=== PATIENT | female | born 1985 | race Caucasian/White ===

== ENCOUNTER → 2016-07-18 | Outpatient (CLI) | payer BC ==
[~2016-07-18] MED LIST: FERR1TAB23 PO; PRENTAB26 PO; VNTHFA/IN INH
[2016-07-18 16:33] LABS: BASO % 0.2 %; BASO ABS # 0.02 K/uL (0-0.2); COMPLETE YES; EOS % 2.1 %; IG% 0.2 %; LYMPH % 23.8 %; LYMPH ABS # 2.25 K/uL (1.2-3.4); MEAN CELL VOLUME 83.9 fL (80-100); MEAN CORPUSCULAR HEMOGLOBIN 28.8 pg (25-34); MEAN CORPUSCULAR HGB CONC 34.3 g/dl (32-36); MEAN PLATELET VOLUME 10.7 fL (7.4-10.4); MONO % 9.1 %; NEUT % 64.6 %; PLATELET COUNT 195 K/uL (130-400); RED BLOOD COUNT 4.17 M/uL (4.2-5.4); WHITE BLOOD COUNT 9.45 K/uL (4.8-10.8)
== END | disposition home or self-care (01) ==
LOC: C.LAB1850 15:27
PROVIDERS: ATTEND Obstetrics & Gynecology
DX: Z34.81 Encounter for supervision of other normal pregnancy, first trimester (principal)

== ENCOUNTER → 2016-07-18 | Outpatient (CLI) | payer BC | END | disposition home or self-care (01) | LOC: C.PAPS 09:12 | PROVIDERS: ATTEND Obstetrics & Gynecology | DX: Z34.81 Encounter for supervision of other normal pregnancy, first trimester (principal) ==

== ENCOUNTER → 2016-07-18 | Outpatient (CLI) | payer BC ==
[2016-07-18 18:50] LABS: URINE APPEARANCE CLEAR (CLEAR); URINE BILIRUBIN NEG (NEG); URINE COLOR YELLOW; URINE NITRITE NEG (NEG); URINE SPECIFIC GRAVITY 1.008 (1.000-1.030); UROBILINOGEN NEG (NEG)
[2016-07-18 18:58] LABS: MANUAL MICROSCOPIC REQUIRED? NO; REVIEW REQ? NO
[2016-07-21 00:16] LABS: CHLAMYDIA TRACH RNA*** NOT DETECTED (NOT DETECTED); GC (NEIS GONORRHOEAE)RNA** NOT DETECTED (NOT DETECTED)
== END | disposition home or self-care (01) ==
LOC: C.LABSPEC 17:40
PROVIDERS: ATTEND Obstetrics & Gynecology
DX: Z34.81 Encounter for supervision of other normal pregnancy, first trimester (principal)

== ENCOUNTER → 2016-09-13 | Outpatient (CLI) | payer BC ==
[2016-09-13 17:05] LABS: GTGD 50 Grams
== END | disposition home or self-care (01) ==
LOC: C.LAB1850 14:39
PROVIDERS: ATTEND Obstetrics & Gynecology
DX: Z34.82 Encounter for supervision of other normal pregnancy, second trimester (principal)

== ENCOUNTER → 2016-12-06 | Outpatient (CLI) | payer BC ==
[2016-12-06 12:05] LABS: HEMATOCRIT 32.3 % (37-47)
[2016-12-06 12:23] LABS: URINE APPEARANCE CLOUDY (CLEAR); URINE BILIRUBIN NEG (NEG); URINE COLOR DK YELLOW; URINE EPITHELIAL CELL AUTO >30 /lpf (0-5); URINE NITRITE NEG (NEG); URINE PH 8.5 (4.5-7.5); URINE SPECIFIC GRAVITY 1.023 (1.000-1.030); UROBILINOGEN NEG (NEG)
[2016-12-06 12:58] LABS: MANUAL MICROSCOPIC REQUIRED? NO; REVIEW REQ? YES; SULFASALICYLIC ACID NEG (NEG)
[2016-12-06 13:18] LABS: GTGD 50 Grams
== END | disposition home or self-care (01) ==
LOC: C.LAB1850 10:23
PROVIDERS: ATTEND Obstetrics & Gynecology
DX: Z34.82 Encounter for supervision of other normal pregnancy, second trimester (principal)

== ENCOUNTER → 2016-12-13 | Outpatient (CLI) | payer BC | END | disposition home or self-care (01) | LOC: C.LAB1850 07:18 | PROVIDERS: ATTEND Obstetrics & Gynecology | DX: O28.1 Abnormal biochemical finding on antenatal screening of mother (principal); Z3A.00 Weeks of gestation of pregnancy not specified ==

== ENCOUNTER → 2017-01-30 | Outpatient (CLI) | payer BC | END | disposition home or self-care (01) | LOC: C.LABSPEC 18:03 | PROVIDERS: ATTEND Obstetrics & Gynecology | DX: Z34.83 Encounter for supervision of other normal pregnancy, third trimester (principal) ==

== ENCOUNTER 2017-02-11 16:38 | Outpatient (CLI) | payer BC ==
[~2017-02-11 16:38] MED LIST changes: -VNTHFA/IN INH
--- NOTE | 2017-02-16 10:52 | EDITING REQUIRED CODING QUERY ---
DIAGNOSIS NEEDED To promote full compliance with coding requirements relating to patient care, physician participation is requested in all cases of assistant store manager operations uncertainty. Please assist us with the question(s) below: Coding Question: The patient received care in labor and delivery on 02/11/17 as noted within the record. Please document the diagnosis that is being addressed by the medication/treatment. Provider Response: DIAGNOSIS: Contractions, r/o labor, not in labor. Thank you for your assistance, [place] Farmer - Lead Enterprise Architect
== END 2017-02-11 17:35 | disposition home or self-care (01) ==
LOC: C.OPB 16:38 → C.LD 16:38 → C.OPB 17:35
PROVIDERS: ATTEND Obstetrics & Gynecology
DX: O62.9 Abnormality of forces of labor, unspecified (principal); Z3A.00 Weeks of gestation of pregnancy not specified

== ENCOUNTER 2017-02-25 17:06 | Outpatient (CLI) | payer BC ==
[~2017-02-25] VITALS: Ht 160 cm; Wt 64.1 kg
[2017-02-25] MEDS ORDERED: VNTHFA/IN INH (17:33)
[2017-02-25 17:37] VITALS: Ht 160 cm; Wt 64.1 kg
== END 2017-02-25 21:15 | disposition home or self-care (01) ==
LOC: C.LD 17:06 → C.OPB 17:06
PROVIDERS: ATTEND Obstetrics & Gynecology
DX: O62.9 Abnormality of forces of labor, unspecified (principal); Z3A.40 40 weeks gestation of pregnancy

== ENCOUNTER 2017-02-27 04:59 | Outpatient (CLI) | payer BC ==
[~2017-02-27] VITALS: Ht 160 cm; Wt 64.1 kg
[~2017-02-27 04:59] MED LIST changes: +VNTHFA/IN INH
[2017-02-27 05:30] VITALS: Ht 160 cm; Wt 64.1 kg
== END 2017-02-27 08:13 | disposition home or self-care (01) ==
LOC: C.LD 04:59 → C.OPB 04:59
PROVIDERS: ATTEND Obstetrics & Gynecology
DX: O62.9 Abnormality of forces of labor, unspecified (principal); Z3A.00 Weeks of gestation of pregnancy not specified

== ENCOUNTER 2017-02-27 16:10 | Inpatient (IN) | payer BC ==
[~2017-02-27] VITALS: Ht 160 cm; Wt 65.0 kg
[~2017-02-27 16:10] MED LIST changes: -FERR1TAB23 PO
[2017-02-27] MEDS ORDERED: LACTATED RINGER'S 1000ML 1,000 ML IV SCH (16:19)
[2017-02-27] MEDS ORDERED: LACTATED RINGER'S 1000ML 1,000 ML IV PRN (16:19)
[2017-02-27 16:44] LABS: HEMATOCRIT 36.9 % (37-47); MEAN CELL VOLUME 90.9 fL (80-100); MEAN CORPUSCULAR HGB CONC 33.1 g/dl (32-36); MEAN PLATELET VOLUME 11.1 fL (7.4-10.4); PLATELET COUNT 160 K/uL (130-400); RED BLOOD COUNT 4.06 M/uL (4.2-5.4); WHITE BLOOD COUNT 10.66 K/uL (4.8-10.8)
[2017-02-27 16:50] VITALS: Ht 160 cm; Wt 65.0 kg
[2017-02-27] MEDS ORDERED: BUPIVACAINE 0.25% 30 ML VIAL ONE (16:52)
[2017-02-27] MEDS ORDERED: EpHEDrine SULFATE INJ 50 MG/ML AMP ONE (16:52)
[2017-02-27] MEDS ORDERED: FENTANYL 2MCG/ML ROPIV 1.25MG/ML 100ML BAG EPI ONE (16:52)
[2017-02-27] MEDS ORDERED: FENTANYL CITRATE INJ 50 MCG/1 ML 2 ML VIAL ONE (16:53)
[2017-02-27] MEDS ORDERED: OXYTOCIN 30 UNITS/500ML NSS IV ONE (17:55)
[2017-02-27] MEDS ORDERED: SUPERCREAM 0.870 % 15GM JAR EXT PRN (18:15)
[2017-02-27] MEDS ORDERED: OXYCODONE/ACETAMINOPHEN 5-325 TAB PO PRN (18:15)
[2017-02-27] MEDS ORDERED: BENZOCAINE 20% AER SPR 82.5 GM CAN EXT PRN (18:15)
[2017-02-27] MEDS ORDERED: LANOLIN OINT EXT PRN ×2 (18:15)
[2017-02-27] MEDS ORDERED: OXYTOCIN 30 UNITS/500ML NSS IV PRN (18:15)
[2017-02-27] MEDS ORDERED: HYDROCORTISONE ACETATE 25 MG SUPP PR PRN (18:15)
[2017-02-27] MEDS ORDERED: ACETAMINOPHEN 325 MG TAB PO PRN (18:15)
[2017-02-27] MEDS ORDERED: DIPHTHERIA/TETANUS/PERTUSSIS 0.5 ML SYR/VIAL IM. ONE (18:15)
[2017-02-27] MEDS ORDERED: ACETAMINOPHEN/CODEINE 300/30MG TAB PO PRN (18:15)
--- NOTE | 2017-02-27 19:34 | Anesthesia Procedure Note ---
Anesthesia Epidural Removal Nt Date & Time Feb 27, 2017 at 19:34 Notes Mental Status: alert / awake / arousable, participated in evaluation Nausea / Vomiting: adequately controlled Pain: adequately controlled Airway Patency, RR, SpO2: stable & adequate BP & HR: stable & adequate Hydration State: stable & adequate Neuraxial Anesthesia: was administered Anesthetic Complications: no major complications apparent, pt satisfied with anesthetic care Epidural: removed without complications, with tip intact
--- NOTE | 2017-02-27 19:55 | DELIVERY SUMMARY ---
DATE OF OPERATION: 02/27/2017 Lynne presented in active labor with rupture of membranes, group B strep negative at term. This was her second baby, prior vaginal delivery, uncomplicated . The patient progressed to 4 cm, requested an epidural. Soon afterwards was fully dilated and pushed. Baby was delivered in right occiput anterior position. There was a nuchal cord x3. This had to be clamped and cut after delivery of the head. The mouth and the nares were suctioned with bulb. Baby was delivered by gentle traction. No excessive force. Live male . Cord gas was obtained. Cord blood obtained. Placenta removed with manual traction. Uterus improved in tone. There was no tearing. Initially there was a relaxation in uterine tone. We increased the Pitocin and this improved. Estimated blood loss 200 mL. Sponge and instrument count correct. I attest to the content of the Intraoperative Record and any orders documented therein. Any exception s are noted below.
[2017-02-27] MEDS: IBUPROFEN 600 MG TAB PO PRN (20:03)
[2017-02-27] MEDS: DOCUSATE SODIUM 100 MG CAP PO SCH (20:03)
[2017-02-27 21:20] VITALS: BP 109/72; PULSE 84; TEMP 36.7; O2SAT 97
[2017-02-27 23:15] VITALS: BP 113/70; PULSE 72; TEMP 37.4; O2SAT 96
[2017-02-28] MEDS: IBUPROFEN 600 MG TAB PO PRN ×6 (00:40→22:46)
[2017-02-28 04:30] VITALS: BP 104/67; PULSE 75; TEMP 36.4; O2SAT 96
[2017-02-28] MEDS: ACETAMINOPHEN/CODEINE 300/30MG TAB PO PRN ×3 (04:37→12:21)
[2017-02-28 07:35] VITALS: BP 110/77; PULSE 72; TEMP 36.6; O2SAT 96
[2017-02-28] MEDS ORDERED: IBUPROFEN 600 MG TAB PO PRN (07:45)
--- NOTE | 2017-02-28 07:45 | Progress Note ---
Subjective Feb 28, 2017. Subjective conversation w/ patient, physical exam, chart review, lab review Ambulation: ambulating normally Voiding: no voiding problems Lochia: Moderate Feeding Type: Breast Feeding Objective Vital Signs Date Time Temp Pulse Resp B/P (MAP) Pulse Ox O2 Delivery O2 Flow Rate FiO2 02/28/17 04:30 36.4 75 16 104/67 (79) 96 Room Air 02/27/17 23:15 Room Air 02/27/17 23:15 37.4 72 16 113/70 (84) 96 Room Air 02/27/17 21:20 36.7 84 16 109/72 (84) 97 Room Air 02/27/17 21:20 Room Air Physical Exam General Appearance: WELL-APPEARING Abdomen: non tender Fundus: Firm Extremities: no calf tenderness Laboratory Results Last 24 Hours Test 02/27/17 16:32 02/28/17 07:12 White Blood Count 10.66 K/uL Red Blood Count 4.06 M/uL Hemoglobin 12.2 g/dL Hematocrit 36.9 % Mean Corpuscular Volume 90.9 fL Mean Corpuscular Hemoglobin 30.0 pg Mean Corpuscular Hemoglobin Concent 33.1 g/dl RDW Standard Deviation 46.9 fL RDW Coefficient of Variation 14.1 % Platelet Count 160 K/uL Mean Platelet Volume 11.1 fL Assessment and Plan Post- Day#: 1 Continue Routine Care: christiano
[2017-02-28 07:58] LABS: HEMATOCRIT 37.8 % (37-47)
[2017-02-28] MEDS: PRENATAL VITAMIN TAB PO SCH (08:02)
[2017-02-28] MEDS: DOCUSATE SODIUM 100 MG CAP PO SCH ×2 (08:02→20:01)
[2017-02-28 12:15] VITALS: BP 102/72; PULSE 89; TEMP 37.1
[2017-02-28 15:40] VITALS: BP 108/73; PULSE 73; TEMP 37
[2017-02-28 16:00] VITALS: BP 111/74; PULSE 79; TEMP 36.9
[2017-02-28] MEDS ORDERED: BISACODYL 5 MG TABEC PO SCH (20:00)
--- NOTE | 2017-02-28 20:13 | Discharge Instructions ---
Discharge Instructions Date of Service Feb 28, 2017. Admission Reason for Admission: Check Labor Discharge Discharge Diagnosis / Problem: recovery from normal delivery Discharge Goals Goal(s): Routine recovery after delivery Medications Continue Dispensed Medications: supercream, dermaplast, lansinoh Activity Recommendations Activity Limitations: per Instructions/Follow-up section . Instructions / Follow-Up Instructions / Follow-Up ACTIVITY RECOMMENDATIONS: * Gradual return to full activity over the next 2-3 weeks. * No lifting - nothing heavier than baby over the next 2-3 weeks. * Do not engage in vigorous exercise, sexual activity or sports until cleared by your physician. * Do not drive or operate any motorized equipment until cleared by your physician. * You may shower/bathe daily. MEDICATIONS: For discomfort or pain, you may use Acetaminophen (Tylenol), Ibuprofen (Advil), or Naproxen (Aleve) following the package directions. For constipation you may use Colace following the package directions. BREAST CARE: If you are not breast feeding: * Wear a supportive bra 24 hours a day for one to two weeks. * Avoid stimulating your breasts and nipples as much as possible during the first few weeks after delivery. * When taking a shower, have the warm water hit your back, not breasts. * When your breasts feel full, apply ice packs. Usually three to four times a day helps ease the discomfort. * Take a mild pain medication (Tylenol / Motrin) when you are uncomfortable. If breast feeding: * Use breast milk to lubricate nipples. Lansinoh cream may be used for sore nipples. You do not need to remove cream prior to breast feeding. If using a different brand of cream, check the label for directions regarding removal of cream prior to nursing. * Wear a supportive bra. * If having problems with breasts or breast feeding, call a microsoft dynamics consultant or your health care provider. EPISIOTOMY CARE: After delivery, if you have an episiotomy (stitches), the following steps will ease discomfort and aid healing. * For the first 24 hours after delivery, place ice packs next to your episiotomy to help reduce swelling. * After the first 24 hour-period, sitz baths, either portable or in the tub, are suggested. A shower with a shower arm sprayed over the episiotomy may be comforting. * Tika care should be done after each voiding and bowel movement. Squirt warm water from a plastic bottle over the perineum (region of the body between the anus and urinary opening) and pat dry. * Use Dermoplast to ease discomfort. Shake container. [place] directly over the episiotomy. Place a Tucks on a clean sanitary pad next to your episiotomy. SPECIAL CARE INSTRUCTIONS: When you are discharged from the hospital, it is important for you to follow the instructions listed below: * During the first week at home, you should be able to care for yourself and your baby. In addition, the usual light household activities are encouraged. * Limit your activities to the way you feel. Do not try to clean the house or move furniture. Be sensible. * If you actively engage in sports and have done so up until the time of your delivery, you may resume these activities as soon as you feel able. This may take up to one month or even longer. Use good judgment. * Continue to take your vitamins for at least six weeks after the of your baby. * Your diet need not be limited unless you were on a special diet before your delivery. Breast-feeding mothers need around 2500 calories per day and at least 64-80 ounces of fluid per day (8 to 10 glasses). * You should eat foods from the four major food groups. Crash diets or fad diets are to be avoided. Eating lean meats, fresh fruits and vegetables, low-fat dairy products, high fiber foods and a regular exercise program, will help you get back to your pre- weight without putting your health at risk. * Constipation is sometimes a problem after delivery. Take a mild laxative as needed. If breast feeding, Milk of Magnesia is acceptable to use. You may use a suppository or Fleets enema if no episiotomy. * A daily shower or tub bath is suggested. Be sure to thoroughly and gently dry the perineum. * A bloody vaginal discharge will usually continue until around four weeks post . A small amount of bleeding may continue for as long as six weeks. Vaginal discharge changes from the bright red bleeding after delivery to pink then brownish and finally yellowish-pink before becoming white and disappearing. * Bleeding may increase with activity. Your first period may come in 4-8 weeks. If you are breast feeding, your period may be delayed even longer. * [place] (sex) can begin whenever both you and your partner feel comfortable and do not have any form of genital infection. It is recommended that you wait at least six weeks for internal and external healing to occur. If you have questions, please talk to your health care practitioner. A condom should be used to prevent infection and . * Foreplay, gentle intercourse and lubrication is very important the first several times to prevent pain. A water-based lubricant such as K-Y jelly or Astroglide may be used. * If you have RH negative blood and your baby is RH positive, you will receive RHOGAM by injection prior to discharge. The nurse will give you a card to keep with you that has the date and place that you received RHOGAM after delivery. * During your care, you had a Rubella screen done to check for the presence of rubella antibodies in your blood. If your test was negative, you will receive a Rubella vaccine prior to discharge. This vaccine may cause a fever, soreness at the injection site and flu-like symptoms. If these symptoms persist, notify your health care practitioner. is not advised for one month after a Rubella vaccine. * Verbalizes understanding of car seat law as reviewed with patient nursing. * Car Seat hand-out given and reviewed with patient by nursing. * Shaken baby information reviewed with patient by nursing. Call you doctor if: * Heavy bleeding (saturating several pads an hour) or passing clots the size of your fist. * A fever >101 degrees F (38.3 degrees C) on two occasions four hours apart and /or chills. * Unusual pain in the pelvic or vaginal areas. * "Baby Blues" lasting longer than two weeks. If you have any questions or concerns, call your health care practitioner at . FOLLOW UP VISIT: * Please call the office at to schedule a 6 week examination. It is important you keep this appointment. It is important for you to make arrangements for either yearly or twice yearly check-ups thereafter. Current Hospital Diet Patient's current hospital diet: Regular OB Diet Discharge Diet Recommended Diet: Regular OB Diet Pending Studies Studies pending at discharge: no Medical Emergencies . Who to Call and When: Medical Emergencies: If at any time you feel your situation is an emergency, please call [phone] immediately. . Non-Emergent Contact Non-Emergency issues call your: [employer] Stockyard Supervisor . . "Provider Documentation" section prepared by Tahmina Pena. . VTE Core Measure Inpt VTE Proph given/why not?: Treatment not indicated
[2017-03-01] VITALS: BP 100/62; PULSE 67; TEMP 37
[2017-03-01] MEDS ORDERED: BISACODYL 10 MG SUPP PR PRN (07:00)
[2017-03-01] MEDS: IBUPROFEN 600 MG TAB PO PRN ×2 (07:07→13:46)
[2017-03-01 07:40] VITALS: BP 103/72; PULSE 75; TEMP 36.5; O2SAT 97
--- NOTE | 2017-03-01 07:49 | OB/GYN Progress Note ---
CARE AIDE Progress Note Date of Service Mar 01, 2017. Subjective conversation w/ patient, physical exam, chart review Ambulation: ambulating normally Voiding: no voiding problems Passing Gas: Yes Diet Tolerance: Regular Diet Lochia: Small Feeding Type: Breast Feeding Pain: Says vaginal tissue sore, using ice packs Notes: Found pt resting comfortably, no overnight events, no acute concerns. Review of Systems Constitutional: No fever, No chills Respiratory: No cough, No shortness of breath Cardiac: No chest pain, No edema Abdomen: No nausea, No vomiting, No diarrhea Female : No dysuria Objective Vital Signs Date Time Temp Pulse Resp B/P (MAP) Pulse Ox O2 Delivery O2 Flow Rate FiO2 03/01/17 00:00 Room Air 03/01/17 00:00 37.0 67 16 100/62 (75) Room Air 02/28/17 16:00 36.9 79 16 111/74 (86) Room Air 02/28/17 15:40 37.0 73 18 108/73 (85) Room Air 02/28/17 15:40 Room Air 02/28/17 12:15 37.1 89 16 102/72 (82) Room Air Physical Exam General Appearance: WELL-APPEARING, WD/WN, NO APPARENT DISTRESS Respiratory/Chest: lungs clear, normal breath sounds, no respiratory distress Cardiovascular: regular rate, rhythm, no edema, no murmur Abdomen: normal bowel sounds, non tender, soft Fundus: Firm, Non-Tender, Relation to Umbilicus (at umbilicus) Extremities: non-tender, no pedal edema Laboratory Results Last 24 Hours Test 03/01/17 07:17 Assessment and Plan Post- Day Number: 1 Continue Routine Care: Resident Physician Supervision Note: I interviewed and examined the patient. Discussed with Dr. Klein and agree with findings and plan as documented in the note. Any exceptions or clarifications are listed here: [None] Documented By: Tahmina Pena 31F s/p , now PPD #1. - Blood type O positive. GBS negative. Rubella immune. - Vital signs reviewed and stable. - Pain controlled with motrin (& prior Tylenol #3). - No leg swelling or tenderness on calf palpation. Encourage ambulation. - Encourage breast feeding. - Hemoglobin pre-delivery 12.2, post-delivery 12.2. Bleeding has improved. Continue to monitor clinically. - Continue routine post-vaginal delivery care. - Pt agreed with above plan, all current questions answered. Mathew Klein MD, PGY1 Fire Code Inspector Tracking Resident Involvement: Resident Care Provided Care Provided: OB Delivery (OB rounds)
[2017-03-01 07:55] LABS: HEMATOCRIT 36.3 % (37-47); MEAN CELL VOLUME 90.3 fL (80-100); MEAN CORPUSCULAR HEMOGLOBIN 29.6 pg (25-34); MEAN CORPUSCULAR HGB CONC 32.8 g/dl (32-36); PLATELET COUNT 157 K/uL (130-400); RED BLOOD COUNT 4.02 M/uL (4.2-5.4); WHITE BLOOD COUNT 9.79 K/uL (4.8-10.8)
[2017-03-01] MEDS: PRENATAL VITAMIN TAB PO SCH (08:30)
[2017-03-01] MEDS: DOCUSATE SODIUM 100 MG CAP PO SCH (08:30)
[2017-03-01] MEDS: ACETAMINOPHEN/CODEINE 300/30MG TAB PO PRN (14:41)
[2017-03-01 16:45] VITALS: BP 104/71; PULSE 67; TEMP 37.1
[2017-03-01 17:27] VITALS: BP 104/71; PULSE 67; TEMP 37.1; O2SAT 97
[2017-03-01 18:25] VITALS: BP_DIAS 71; PULSE 67; TEMP 37.1
== END 2017-03-01 18:25 | disposition home or self-care (01) | DRG 775 ==
LOC: C.LD 16:10 → C.OPB 16:10 → C.LD 16:19 → C.OBG 21:35
PROVIDERS: ADMIT Obstetrics & Gynecology; ATTEND Obstetrics & Gynecology
PROC: 10E0XZZ Delivery of Products of Conception, External Approach (ICD-10-PCS; principal; 2017-02-27)
DX: O69.1XX0 Labor and delivery complicated by cord around neck, with compression, not applicable or unspecified (principal); Z37.0 Single live birth; Z3A.40 40 weeks gestation of pregnancy

== ENCOUNTER → 2017-04-25 | Outpatient (CLI) | payer BC ==
[~2017-04-25] MED LIST changes: -VNTHFA/IN INH
== END | disposition home or self-care (01) ==
LOC: C.LABSPEC 15:05
PROVIDERS: ATTEND Family Medicine
DX: J02.9 Acute pharyngitis, unspecified (principal)

== ENCOUNTER → 2017-06-27 | Outpatient (CLI) | payer BC ==
--- NOTE | 2017-06-27 19:06 | DIAGNOSTIC IMAGING REPORT ---
TWO VIEW CHEST CLINICAL HISTORY: Cough. FINDINGS: PA and lateral chest radiographs are compared to study dated 05/13/2011. The cardiomediastinal silhouette is unremarkable. The lungs and pleural spaces are clear. There is no pneumothorax. The bony thorax appears intact. IMPRESSION: No active disease in the chest. Electronically signed by: James Odell M.D. 06/27/2017 7:04 PM Dictated Date/Time: 06/27/2017 7:04 PM
== END | disposition home or self-care (01) ==
LOC: C.RAD 18:43
PROVIDERS: ATTEND Family Medicine
DX: R05 Cough (principal)